=== PATIENT | male | born 1970 | race Two or more races ===

== ENCOUNTER 2017-04-29 08:50 | Day surgery (SDC) | payer OTHER ==
[2017-04-29] VITALS (12 sets, daily range): BP systolic 107–124; BP diastolic 78–91
[~2017-04-29] VITALS: Ht 162.6 cm; Wt 65.8 kg
--- NOTE | 2017-04-29 08:36 | Pre-Procedure Note/Attestation ---
Pre-Procedure Note/Attestation Complete Prior to Procedure Planned Procedure: right Procedure Narrative: shoulder arthroscopy, sad, possible rc repair Indications for Procedure Pre-Operative Diagnosis: right shoulder impingement, internal derangment Attestation I attest that I discussed the nature of the procedure; its benefits; risks and complications; and alternatives (and the risks and benefits of such alternatives ), prior to the procedure, with the patient (or the patient's legal equal opportunity representative). I attest that, if there was a reasonable possibility of needing a blood transfusion, the patient (or the patient's legal equal opportunity representative) was given the [facility] standardized written summary, pursuant to the [place] Blood Safety Act ([place] Health and Safety Code # 1645, as amended). I attest that I re-evaluated the patient just prior to the surgery and that there has been no change in the patient's H&P, except as documented below: JOHN NOGUERA Apr 29, 2017 08:36
--- NOTE | 2017-04-29 08:37 | Operative Note - PDOC ---
Operative Note Operative Note Pre-op Diagnosis: right shoulder impingement, internal derangment Procedure: right shoulder arthroscopy, sad, see op report Post-op Diagnosis: same as pre-op plus Operative Findings: consistent w/pre-op dx studies Anesthesia: regional Specimen: none Complications: none Condition: stable Estimated Blood Loss: none Implant(s) used?: No JOHN NOGUERA Apr 29, 2017 08:37
[~2017-04-29 08:50] MED LIST: D5 1/2NS 1,000 ML IV SCH; HYDROmorphone 1mg/ml Carpuject SUBQ PRN; NKM; Norco 5mg/325mg tab ORAL PRN; Tylenol #3 tab (300mg/30mg) ORAL PRN; ceFAZolin 1gm in D5W 55ml IVP ONE; celeBREX 200mg Cap **SURGERY PATIENTS ONLY ORAL ONE; oxyCONTIN 20mg tab ORAL ONE
[2017-04-29] MEDS ORDERED: Ropivacaine 5mg/ml Vial 30ml INJ ONE (08:53)
[2017-04-29] MEDS ORDERED: celeBREX 200mg Cap **SURGERY PATIENTS ONLY ORAL ONE (09:33)
[2017-04-29] MEDS ORDERED: Bupivacaine 0.25% Inj 30ml INJ ONE (10:23)
[2017-04-29] MEDS ORDERED: Propofol 200mg/20ml IV ONE (10:30)
[2017-04-29] MEDS ORDERED: LR 1000ml ONE (10:30)
[2017-04-29] MEDS ORDERED: NS Irrig 4000ml IRRIG ONE (10:30)
[2017-04-29] MEDS ORDERED: Succinylcholine 20mg/ml 10ml vial ONE (10:30)
[2017-04-29] MEDS ORDERED: fentaNYL 100 mcg/2 mL IV ONE (10:30)
[2017-04-29] MEDS ORDERED: Zemuron 50mg/5ml Inj IV ONE (10:30)
[2017-04-29] MEDS ORDERED: Midazolam 2mg/2ml Inj ONE (10:30)
[2017-04-29] MEDS ORDERED: Glycopyrrolate 0.2mg/ml 1ml Vial ONE (10:30)
[2017-04-29] MEDS ORDERED: Neostigmine 1mg/ml 10ml Inj ONE (10:30)
[2017-04-29] MEDS ORDERED: Ketorolac 30mg Inj ONE (10:30)
[2017-04-29] MEDS ORDERED: EPINEPHrine 1mg/1ml Amp ONE (11:12)
[2017-04-29] MEDS ORDERED: LR 1000ml 1,000 ML IVLG SCH (11:28)
--- NOTE | 2017-04-29 11:28 | Anethesia Preoperative Eval ---
Anesthesia Pre-op PMH/ROS General Date of Evaluation: Apr 29, 2017 Time of Evaluation: 10:18 Anesthesiologist: Zoran ASA Score: ASA 2 Mallampati Score Class I : Soft palate, uvula, fauces, pillars visible Class II: Soft palate, uvula, fauces visible Class III: Soft palate, base of uvula visible Class IV: Only hard plate visible Mallampati Classification: Class II Surgeon: Luis Diagnosis: R shoulder pain Surgical Procedure: R shoulder scope Anesthesia History: none Social History: smoking - h/o Family History: no anesthesia problems Allergies: Coded Allergies: No Known Allergies (Unverified , 04/28/17) Medications: see eMAR Past Medical History Cardiovascular: Denies: HTN, CAD, IA, valve dz, arrhythmia, other Pulmonary: Denies: asthma, COPD, LOU, other Gastrointestinal/Genitourinary: Reports: GERD, Denies: CRI, ESRD, other Neurologic/Psychiatric: Denies: dementia, CVA, depression/anxiety, TIA, other Endocrine: Denies: DM, hypothyroidism, steroids, other HEENT: Reports: cataract (R), Denies: cataract (L), glaucoma, [place] (L), [place] (R), other Hematology/Immune: Denies: anemia, DVT, bleeding disorder, other Musculoskeletal/Integumentary: Denies: OA, RA, DJD, DDD, edema, other PMH Narrative: as above PSxH Narrative: R eye Sx Anesthesia Pre-op Phys. Exam Physician Exam Last Vital Signs Date Time Temp Pulse Resp B/P (MAP) Pulse Ox O2 Delivery O2 Flow Rate FiO2 04/29/17 09:27 98.1 66 18 124/87 99 Room Air Constitutional: NAD Neurologic: CN 2-12 intact Cardiovascular: RRR, no M/R/G Respiratory: CTA Gastrointestinal: S/NT/ND Airway Exam Mallampati Score: Class II MO: full Neck: flexible ROM: full Teeth: missing Dentures: no upper, no lower Anesthesia Pre-op A/P Labs see chart Studies Pre-op Studies: EKG - NSR Risk Assessment & Plan Assessment: ASA 2 Plan: GA with ETT R brachial plexus block for p/op pain control Status Change Before Surgery: No Pre-Antibiotics Drug: Ancef 1gr. Given Within 1 Hr of Incision: Yes Time Given: 11:12 YAO ROBERSON M.D. Apr 29, 2017 11:28
[2017-04-29] MEDS ORDERED: Meperidine 50mg/ml Inj(FOR RIGORS ONLY) IV PRN (11:30)
[2017-04-29] MEDS ORDERED: Ketorolac 30mg Inj IV PRN (11:30)
[2017-04-29] MEDS ORDERED: Hydromorphone 0.5mg/0.5ml inj IVP PRN (11:30)
[2017-04-29] MEDS ORDERED: DiphenhydrAMINE 50mg/ml Inj IVP PRN (11:30)
--- NOTE | 2017-04-29 12:30 | Immediate Post-Op Evaluation ---
Immediate Post-Op Evalulation Immediate Post-Op Evalulation Procedure: Rosi reece arthroscopy, subacromion decompression Date of Evaluation: Apr 29, 2017 Time of Evaluation: 12:29 IV Fluids: 1100 Blood Products: none Estimated Blood Loss: min Urinary Output: none Blood Pressure Systolic: 116 Blood Pressure Diastolic: 72 Pulse Rate: 68 Respiratory Rate: 20 O2 Sat by Pulse Oximetry: 98 Temperature (Fahrenheit): 97.6 Pain Score (1-10): 2 Nausea: No Vomiting: No Complications none Patient Status: reacts, patent, extubated, none Hydration Status: adequate YAO ROBERSON M.D. Apr 29, 2017 12:30
--- NOTE | 2017-04-29 20:45 | Operative Note - Dictated ---
DATE OF OPERATION: 04/29/2017 PREOPERATIVE DIAGNOSES: 1. Right shoulder partial rotator cuff tear. 2. Right shoulder impingement syndrome. POSTOPERATIVE DIAGNOSES: 1. Right shoulder partial rotator cuff tear. 2. Right shoulder impingement syndrome. PROCEDURE: 1. Right shoulder diagnostic arthroscopy. 2. Right shoulder subacromial decompression and bursectomy. SURGEON: Sumit Smith M.D. ANESTHESIA: MAC with local. INDICATION FOR PROCEDURE: The patient is a pleasant gentleman who has had progressive right shoulder pain. He had continued symptoms despite conservative treatment. He had MRI, which showed possible tear of the rotator cuff, failed conservative treatment, and elected to undergo right shoulder arthroscopy, subacromial decompression, possible rotator cuff repair. Risks, limitations, expectations, and complications of procedure were discussed in detail. All questions addressed. DESCRIPTION OF PROCEDURE: After informed consent was obtained, the patient was brought to the operating room and placed supine under interscalene general anesthesia. The patient was carefully placed in a beach-chair position. A time-out was performed. Right shoulder was prepped and draped in a sterile manner. Portal sites were injected with 0.25% Marcaine with epinephrine. Inferolateral stab incision was then made. Trocar was introduced into the glenohumeral joint. No significant chondral damage. The anterior labrum appeared to be intact along the subscapularis. The biceps tendon was intact. The undersurface of the rotator cuff was intact. At this point, the camera was repositioned in the subacromial space. There was significant hypertrophic bursal tissue. This was debrided, better visualized the undersurface of the acromion. He has significant bone spurring, therefore, acromioplasty was started from lateral to medial, completed from posterior to anterior. Once that was done, the bursectomy was completed in the posterior aspect of the subacromial space. At that point, the bursal side of the rotator cuff was evaluated. There was a bursal-sided rotator cuff tear, which was debrided. Once it was debrided, it did not need formal at the musculotendinous junction. At that point, the instruments removed. Portal sites were closed using 3-0 Monocryl sutures. Steri-Strips and a sterile dressing were applied. The patient was awoken and taken to recovery room with stable vital signs. ESTIMATED BLOOD LOSS: None. COMPLICATIONS: None. SPECIMENS: None. IMPLANTS: None. Sumit Smith M.D. DR: KATE JOB#: [id number] CC:
[2017-04-30 08:53] VITALS: BP 128/72
--- NOTE | 2017-04-30 08:53 | 48 Hour Post Anesthesia Eval ---
Post Anesthesia Evaluation Procedure: R shanell arthroscopy, subacromion decompression Date of Evaluation: Apr 29, 2017 Time of Evaluation: 13:50 Blood Pressure Systolic: 128 0: 72 Pulse Rate: 68 Respiratory Rate: 20 Temperature (Fahrenheit): 97.8 O2 Sat by Pulse Oximetry: 98 Airway: patent Nausea: No Vomiting: No Pain Intensity: 2 Hydration Status: adequate Cardiopulmonary Status: stable Mental Status/LOC: patient returned to baseline Follow-up Care/Observations: n/a Post-Anesthesia Complications: none Follow-up care needed: ready to discharge YAO ROBERSON M.D. Apr 30, 2017 08:53
== END 2017-04-29 14:40 | disposition home or self-care (01) ==
LOC: SUR 08:50
DX: M75.111 Incomplete rotator cuff tear or rupture of right shoulder, not specified as traumatic (principal); M75.41 Impingement syndrome of right shoulder; Z87.891 Personal history of nicotine dependence; K21.9 Gastro-esophageal reflux disease without esophagitis
CPT/HCPCS: 29823; 29826; J0171; J0330; J0690; J1885; J2250; J2704; J2710; J2795; J3010; J3490; J7120; 94003; 94150